=== PATIENT | female | born 1945 | race Caucasian/White ===

== ENCOUNTER → 2018-06-20 | Outpatient (CLI) | payer MEDICARE, OTHER ==
[~2018-06-20] MED LIST: ALPR.5 PO; AMLO5 PO; ASPI325EC PO; ASPI81CH PO; CARV3.125 PO; CELE200 PO; CHOL10002 PO; CLOBETASOL TOP; HEARTBURN RELI150 MG PO; HYDCHL25 PO; HYDR1TAB94 PO; LEVSOD50 PO; LISI5 PO; POTCHL10ER PO; Percocet 5-3251 EACH PO; SPIR25 PO; THYR60 PO; VOLTAREN100 GM TOP; [UNRECOGNIZED DRUG - OTHER] PO
[2018-06-20 12:01] LABS: BASOPHILS ABSOLUTE AUTO 0.17 K/mm3 (0.00-0.23); BASOPHILS PERCENT AUTO 2 % (0-2); EOSINOPHILS ABSOLUTE AUTO 0.52 K/mm3 (0.00-0.68); EOSINOPHILS PERCENT AUTO 6 % (0-6); Hematocrit 44.7 % (33.0-51.0); Hemoglobin 15.6 g/dL (11.5-16.0); IMMATURE GRAN ABSOLUTE AUTO 0.02 K/mm3 (0.00-0.10); IMMATURE GRAN PERCENT AUTO 0 % (0-1); LYMPHOCYTES PERCENT AUTO 38 % (21-46); MONOCYTES ABSOLUTE AUTO 0.85 K/mm3 (0.16-1.47); MONOCYTES PERCENT AUTO 10 % (4-13); Mean Corpuscular HGB 31.5 pg (26.0-34.0); Mean Corpuscular HGB Conc 34.9 g/dL (31.5-36.5); Mean Platelet Volume 10.8 fL (9.1-12.4); NEUTROPHILS ABSOLUTE AUTO 4.02 K/mm3 (1.96-9.15); NEUTROPHILS PERCENT AUTO 45 % (41-73); Platelet Count 432 K/mm3 (150-400); RDW Standard Deviation 46.4 fL (35.1-46.3); Red Blood Cell Count 4.95 M/mm3 (3.80-5.20); White Blood Cell Count 8.98 K/mm3 (4.00-11.30)
[2018-06-20 12:02] LABS: Bun/Creatinine Ratio 31.7 (12.0-20.0); Calcium, Blood 9.4 mg/dL (8.5-10.1); Creatinine, Blood 1.64 mg/dL (0.40-1.00); Mean Corpuscular Volume 90 fL (80-100); Potassium, Blood 4.9 mmol/L (3.5-5.5)
== END | disposition home or self-care (01) ==
LOC: LAB SHORT 11:54 → LAB EV 11:54
PROVIDERS: Family Medicine
DX: R19.7 Diarrhea, unspecified (principal); N39.0 Urinary tract infection, site not specified
CPT/HCPCS: 80048; 85025; 87086

== ENCOUNTER 2018-07-04 07:00 | Day surgery (SDC) | payer MEDICARE, OTHER ==
[~2018-07-04] VITALS: Ht 165.1 cm; Wt 89.4 kg
[~2018-07-04 07:00] MED LIST changes: -ASPI325EC PO; -Percocet 5-3251 EACH PO
--- NOTE | 2018-07-04 08:00 | NUR ---
History, Chart, Medications and Allergies reviewed before start of procedure. Patient confirms NPO status and agrees with scheduled surgery. Patient reports completing Chlorhexadine shower X2 prior to admission to hospital. Lungs clear T/O to Auscultation. Reports having no current issues with c-diff and was treated and has no current diarrhea. Nozin nasal ladle builder used to nares bilat x3 ampules.
--- NOTE | 2018-07-04 08:01 | NUR ---
knee high mervin hose wtih calf PAS intact to RLE.
--- NOTE | 2018-07-04 08:19 | NUR ---
PATIENT DECLINES BLANKET WARMER.
[2018-07-04 10:48] LABS: Albumin, Blood 2.9 g/dL (3.4-5.0); Albumin/Globulin Ratio 0.7 (0.8-1.8); Bilirubin, Total 0.6 mg/dL (0.1-1.0); Calcium, Blood 8.9 mg/dL (8.5-10.1); Creatinine, Blood 1.4 mg/dL (0.40-1.00); Globulin, Blood 4.4 g/dL (2.2-4.0); Potassium, Blood 4.1 mmol/L (3.5-5.5); Total Protein, Blood 7.3 g/dL (6.4-8.2)
--- NOTE | 2018-07-04 11:57 | NUR ---
"[facility] | REPORT TO KRISHNA SANCHES. XRAYS PENDING."
--- NOTE | 2018-07-04 12:13 | NUR ---
WAITING TO GIVE REPORT TO SURGICAL FLOOR RN. PT RESTING QUIETLY.
--- NOTE | 2018-07-04 13:46 | NUR ---
PT ARRIVED BACK TO THE ROOM AT APPROXIMATELY 1225. PT ALERT AND ORIENTED UPON ARRIVAL TO THE ROOM. PT DENIES PAIN BUT REPORTS NUMBNESS TO BLE. WILL CONTINUE TO REPORT TO ONCOMING RN.
--- NOTE | 2018-07-04 18:12 | NUR ---
SHIFT SUMMARY PAIN HAS BEEN MANAGED WITH PO PAIN MEDICATION POST OP. PT WAS UNABLE TO WORK WITH THERAPY R/T NUMBNESS TO BLE. PT HAS BEEN OOB X1 WITH 1 PERSON ASSIST. VSS. WILL MONITOR UNTIL REPORT TO ONCOMING RN.
--- NOTE | 2018-07-05 02:58 | NUR ---
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 PT has increased creatinine 1.40 with gfr 39 so toradol not given. PT says she has seen nephrology in past for condition. she has recieved oxycodone 10 mg x 1 and wanting another dose as soon as possible q 4 hours prn. up with minimal assist to bsc and voids good amounts of urine. denies nausea, declines bowel care due to hx IBS. poor appetite taking fluds with out problems. has bradycardia with pulse from 49 to 58. denies dizziness when up out of bed.
[2018-07-05 05:10] LABS: BASOPHILS ABSOLUTE AUTO 0.11 K/mm3 (0.00-0.23); BASOPHILS PERCENT AUTO 1 % (0-2); EOSINOPHILS ABSOLUTE AUTO 0.92 K/mm3 (0.00-0.68); EOSINOPHILS PERCENT AUTO 9 % (0-6); Hematocrit 39.2 % (33.0-51.0); Hemoglobin 12.8 g/dL (11.5-16.0); IMMATURE GRAN ABSOLUTE AUTO 0.03 K/mm3 (0.00-0.10); IMMATURE GRAN PERCENT AUTO 0 % (0-1); LYMPHOCYTES PERCENT AUTO 26 % (21-46); MONOCYTES ABSOLUTE AUTO 1.03 K/mm3 (0.16-1.47); MONOCYTES PERCENT AUTO 10 % (4-13); Mean Corpuscular HGB Conc 32.7 g/dL (31.5-36.5); Mean Corpuscular Volume 95 fL (80-100); Mean Platelet Volume 11.1 fL (9.1-12.4); NEUTROPHILS ABSOLUTE AUTO 5.79 K/mm3 (1.96-9.15); NEUTROPHILS PERCENT AUTO 55 % (41-73); Platelet Count 336 K/mm3 (150-400); RDW Coefficient Variation 14.3 % (11.7-14.2); Red Blood Cell Count 4.13 M/mm3 (3.80-5.20); White Blood Cell Count 10.58 K/mm3 (4.00-11.30)
[2018-07-05 05:58] LABS: Calcium, Blood 8.2 mg/dL (8.5-10.1); Creatinine, Blood 1.4 mg/dL (0.40-1.00); Magnesium, Blood 1.6 mg/dL (1.6-2.4); Potassium, Blood 4.1 mmol/L (3.5-5.5)
[2018-07-05] MEDS ORDERED: Percocet 5-3251 EACH PO (08:24)
[2018-07-05] MEDS ORDERED: ASPI325EC PO (08:25)
== END 2018-07-05 15:35 | disposition home or self-care (01) ==
LOC: ORSCMMR 07:00 → SURS 13:11 → ORSCMMR 07-05 15:35
PROVIDERS: Anesthesiology; Orthopaedic Surgery
PROC: 0SRD0JZ Replacement of Left Knee Joint with Synthetic Substitute, Open Approach (ICD-10-PCS; principal; 2018-07-04 08:30)
DX: M17.12 Unilateral primary osteoarthritis, left knee (principal); E03.9 Hypothyroidism, unspecified; I10 Essential (primary) hypertension; K21.9 Gastro-esophageal reflux disease without esophagitis; Z79.899 Other long term (current) drug therapy; Z79.82 Long term (current) use of aspirin; Z88.5 Allergy status to narcotic agent; Z88.8 Allergy status to other drugs, medicaments and biological substances; Z95.5 Presence of coronary angioplasty implant and graft; Z90.81 Acquired absence of spleen; Z90.49 Acquired absence of other specified parts of digestive tract; Z90.710 Acquired absence of both cervix and uterus; Z87.891 Personal history of nicotine dependence
CPT/HCPCS: 36415; 73560-LT; 80048; 80053; 83735; 85025; 86850; 86900; 86901; 88300; 97110; 97116; 97161; 97530; C1776; J0171; J0690; J0735; J1885; J2250; J2795; J7120

== ENCOUNTER → 2018-11-29 | Outpatient (CLI) | payer MEDICARE, OTHER ==
[~2018-11-29] MED LIST changes: +ASPI325EC PO; +Percocet 5-3251 EACH PO
== END | disposition home or self-care (01) ==
LOC: LAB SHORT 11:41 → PLD 11:41
DX: L57.0 Actinic keratosis (principal); L81.9 Disorder of pigmentation, unspecified
CPT/HCPCS: 88305

== ENCOUNTER → 2019-10-27 | Outpatient (CLI) | payer MEDICARE, OTHER ==
[~2019-10-27] MED LIST changes: +ACET325 PO; +AZIT250 PO; +Aspirin EC81 MG PO; -CARV3.125 PO; +CARV6.25 PO; +CARVEDILOL6.25 MG PO; +CELEBREX200 MG PO; -CHOL10002 PO; -HEARTBURN RELI150 MG PO; +LEVSOD112 PO; -LEVSOD50 PO; -LISI5 PO; +Prinivil10 MG PO; +RANITIDINE PO; +VITAMIN D31000 UNI1 PO; +ZESTRIL40 M1 PO
[2019-10-27 15:12] LABS: Albumin, Blood 2.3 g/dL (3.4-5.0); Albumin/Globulin Ratio 0.5 (0.8-1.8); Bun/Creatinine Ratio 23.1 (12.0-20.0); Calcium, Blood 7.9 mg/dL (8.5-10.1); Creatinine, Blood 1.3 mg/dL (0.40-1.00); Potassium, Blood 3.2 mmol/L (3.5-5.5); Total Protein, Blood 7.3 g/dL (6.4-8.2); Troponin I 0.026 ng/mL (0.000-0.040)
[2019-10-27 15:14] LABS: Hematocrit 35.7 % (33.0-51.0); Mean Corpuscular HGB 31.3 pg (26.0-34.0); Mean Corpuscular HGB Conc 33.6 g/dL (31.5-36.5); Mean Corpuscular Volume 93 fL (80-100); RDW Coefficient Variation 14.3 % (11.7-14.2); RDW Standard Deviation 47.3 fL (35.1-46.3); Red Blood Cell Count 3.84 M/mm3 (3.80-5.20)
[2019-10-27 15:30] LABS: Mean Platelet Volume 10.3 fL (9.1-12.4); Platelet Count 363 K/mm3 (150-400); White Blood Cell Count 16.97 K/mm3 (4.00-11.30)
[2019-10-27 15:32] LABS: BASOPHILS PERCENT MAN 0 % (0-2); EOSINOPHILS PERCENT MAN 0 % (0-6); LYMPHOCYTES ABSOLUTE MAN 4.24 K/mm3 (0.84-5.20); LYMPHOCYTES PERCENT MAN 25 % (21-46); MONOCYTES ABSOLUTE MAN 1.52 K/mm3 (0.16-1.47); MONOCYTES PERCENT MAN 9 % (4-13); SEG NEUTROPHILS PERCENT MAN 66 % (41-73); TOTAL CELLS COUNTED 100
== END | disposition home or self-care (01) ==
LOC: LAB EV 14:55 → LAB SHORT 14:55
PROVIDERS: Physician Assistant Surgical
DX: R05 Cough (principal)
CPT/HCPCS: 80053; 84484; 85025

== ENCOUNTER 2019-11-02 09:33 | Inpatient (IN) | payer MEDICARE ==
[~2019-11-02] VITALS: Ht 165.1 cm; Wt 82.2 kg
[~2019-11-02 09:33] MED LIST changes: -CARVEDILOL6.25 MG PO
[2019-11-02 11:31] LABS: BASOPHILS ABSOLUTE AUTO 0.07 K/mm3 (0.00-0.23); BASOPHILS PERCENT AUTO 0 % (0-2); EOSINOPHILS ABSOLUTE AUTO 0.23 K/mm3 (0.00-0.68); EOSINOPHILS PERCENT AUTO 1 % (0-6); Hematocrit 38.9 % (33.0-51.0); Hemoglobin 12.7 g/dL (11.5-16.0); IMMATURE GRAN PERCENT AUTO 1 % (0-1); LYMPHOCYTES ABSOLUTE AUTO 2.88 K/mm3 (0.84-5.20); LYMPHOCYTES PERCENT AUTO 18 % (21-46); MONOCYTES ABSOLUTE AUTO 1.75 K/mm3 (0.16-1.47); MONOCYTES PERCENT AUTO 11 % (4-13); Mean Corpuscular HGB 30.4 pg (26.0-34.0); Mean Corpuscular HGB Conc 32.6 g/dL (31.5-36.5); Mean Corpuscular Volume 93 fL (80-100); Mean Platelet Volume 10.8 fL (9.1-12.4); NEUTROPHILS ABSOLUTE AUTO 11.21 K/mm3 (1.96-9.15); NEUTROPHILS PERCENT AUTO 69 % (41-73); Platelet Count 360 K/mm3 (150-400); RDW Coefficient Variation 14.3 % (11.7-14.2); RDW Standard Deviation 48.1 fL (35.1-46.3); Red Blood Cell Count 4.18 M/mm3 (3.80-5.20); White Blood Cell Count 16.34 K/mm3 (4.00-11.30)
[2019-11-02 11:54] LABS: Alanine Aminotransfer (ALT/SGP 16 U/L (12-78); Albumin, Blood 2.2 g/dL (3.4-5.0); Albumin/Globulin Ratio 0.5 (0.8-1.8); Alk Phos 79 U/L (50-136); Anion Gap 11 mmol/L (6-16); Aspartate Aminotrans (AST/SGOT 28 U/L (12-37); Bilirubin, Total 0.8 mg/dL (0.1-1.0); Blood Urea Nitrogen 16 mg/dL (8-24); CO2, Blood 23 mmol/L (21-32); Calcium, Blood 7.8 mg/dL (8.5-10.1); Chloride, Blood 101 mmol/L (98-108); Creatinine, Blood 0.89 mg/dL (0.40-1.00); Globulin, Blood 4.5 g/dL (2.2-4.0); Glomerular Filtration Rate >60 (60-); Glucose, Blood 92 mg/dL (70-99); Potassium, Blood 2.6 mmol/L (3.5-5.5); Sodium, Blood 135 mmol/L (136-145); Total Protein, Blood 6.7 g/dL (6.4-8.2)
[2019-11-02 11:58] LABS: Troponin I <0.015 ng/mL (0.000-0.040)
[2019-11-02 12:56] LABS: International Normalized Ratio 1.14; Prothrombin Time Results 12.1 Sec (9.7-11.5)
[2019-11-02] MEDS ORDERED: CARVEDILOL6.25 MG PO (13:18)
[2019-11-02] MEDS ORDERED: AMLO5 PO (15:27)
--- NOTE | 2019-11-02 17:31 | NUR ---
CARDIZEM DECREASED TO 5ML/HR PER TITRATION ORDERS, PT NOTED TO BE IN SINUS RYTHM. SPOKE TO PROVIDER, EKG REPEATED, CONTINUE TO DECREASE CARDIZEM TO ZERO PER DR RODRIGUEZ.
--- NOTE | 2019-11-02 18:18 | NUR ---
MAG HELD PER RECENT LABS PER DR. RODRIGUEZ.
[2019-11-03 04:12] LABS: BASOPHILS ABSOLUTE AUTO 0.09 K/mm3 (0.00-0.23); BASOPHILS PERCENT AUTO 1 % (0-2); EOSINOPHILS ABSOLUTE AUTO 0.27 K/mm3 (0.00-0.68); EOSINOPHILS PERCENT AUTO 2 % (0-6); Hematocrit 36.5 % (33.0-51.0); Hemoglobin 11.8 g/dL (11.5-16.0); IMMATURE GRAN ABSOLUTE AUTO 0.14 K/mm3 (0.00-0.10); IMMATURE GRAN PERCENT AUTO 1 % (0-1); LYMPHOCYTES ABSOLUTE AUTO 2.82 K/mm3 (0.84-5.20); LYMPHOCYTES PERCENT AUTO 18 % (21-46); MONOCYTES ABSOLUTE AUTO 1.42 K/mm3 (0.16-1.47); MONOCYTES PERCENT AUTO 9 % (4-13); Mean Corpuscular HGB 30.6 pg (26.0-34.0); Mean Corpuscular HGB Conc 32.3 g/dL (31.5-36.5); Mean Corpuscular Volume 95 fL (80-100); NEUTROPHILS ABSOLUTE AUTO 11.08 K/mm3 (1.96-9.15); NEUTROPHILS PERCENT AUTO 70 % (41-73); Platelet Count 376 K/mm3 (150-400); RDW Coefficient Variation 14.5 % (11.7-14.2); RDW Standard Deviation 48.5 fL (35.1-46.3); Red Blood Cell Count 3.86 M/mm3 (3.80-5.20); White Blood Cell Count 15.82 K/mm3 (4.00-11.30)
[2019-11-03 04:38] LABS: Anion Gap 10 mmol/L (6-16); Blood Urea Nitrogen 15 mg/dL (8-24); Bun/Creatinine Ratio 15.3 (12.0-20.0); CO2, Blood 22 mmol/L (21-32); Calcium, Blood 7.4 mg/dL (8.5-10.1); Chloride, Blood 109 mmol/L (98-108); Creatinine, Blood 0.98 mg/dL (0.40-1.00); Glomerular Filtration Rate 59 (60-); Glucose, Blood 87 mg/dL (70-99); Magnesium, Blood 1.8 mg/dL (1.6-2.4); Phosphorus, Blood 1.4 mg/dL (2.5-4.9); Potassium, Blood 4.2 mmol/L (3.5-5.5); Sodium, Blood 141 mmol/L (136-145); Troponin I 0.031 ng/mL (0.000-0.040)
--- NOTE | 2019-11-03 05:29 | NUR ---
SHIFT SUMMARY PT A&O X4. VSS. MONITOR SHOWS NSR T/O SHIFT, HR 60's-80's. SPO2 > 92% ON RA. NO EVENTS OVER NIGHT. NS KCL GTT INFUSING PER ORDERS. WILL CONTINUE TO MONITOR AND PROVIDE CARE PER ORDERS AND PROTOCOL.
--- NOTE | 2019-11-03 08:11 | NUR ---
ASSUMED CARE AT 0700, RESTING SUPINE AT 30 DEGREE INCLINE. A/A/OX4, VSS, KCL INFUSING AT 125ML/HR AT THIS TIME, PLAN OF CARE REVIEWED, WILL CONTINUE TO MONITOR.
[2019-11-04 04:37] LABS: BASOPHILS ABSOLUTE AUTO 0.15 K/mm3 (0.00-0.23); BASOPHILS PERCENT AUTO 1 % (0-2); EOSINOPHILS ABSOLUTE AUTO 0.45 K/mm3 (0.00-0.68); EOSINOPHILS PERCENT AUTO 3 % (0-6); Hematocrit 35.7 % (33.0-51.0); Hemoglobin 11.3 g/dL (11.5-16.0); IMMATURE GRAN ABSOLUTE AUTO 0.15 K/mm3 (0.00-0.10); IMMATURE GRAN PERCENT AUTO 1 % (0-1); LYMPHOCYTES ABSOLUTE AUTO 2.97 K/mm3 (0.84-5.20); LYMPHOCYTES PERCENT AUTO 21 % (21-46); MONOCYTES ABSOLUTE AUTO 1.15 K/mm3 (0.16-1.47); MONOCYTES PERCENT AUTO 8 % (4-13); Mean Corpuscular HGB 30.2 pg (26.0-34.0); Mean Corpuscular HGB Conc 31.7 g/dL (31.5-36.5); Mean Corpuscular Volume 96 fL (80-100); Mean Platelet Volume 10.9 fL (9.1-12.4); NEUTROPHILS ABSOLUTE AUTO 9.27 K/mm3 (1.96-9.15); NEUTROPHILS PERCENT AUTO 66 % (41-73); Platelet Count 400 K/mm3 (150-400); RDW Standard Deviation 51.1 fL (35.1-46.3); Red Blood Cell Count 3.74 M/mm3 (3.80-5.20); White Blood Cell Count 14.14 K/mm3 (4.00-11.30)
[2019-11-04 04:58] LABS: Anion Gap 7 mmol/L (6-16); Blood Urea Nitrogen 11 mg/dL (8-24); Bun/Creatinine Ratio 12.3 (12.0-20.0); CO2, Blood 22 mmol/L (21-32); Calcium, Blood 7.8 mg/dL (8.5-10.1); Chloride, Blood 110 mmol/L (98-108); Creatinine, Blood 0.89 mg/dL (0.40-1.00); Glomerular Filtration Rate >60 (60-); Glucose, Blood 88 mg/dL (70-99); Phosphorus, Blood 1.3 mg/dL (2.5-4.9); Sodium, Blood 139 mmol/L (136-145)
--- NOTE | 2019-11-04 05:48 | NUR ---
SHIFT SUMMARY PT A&O X4. VSS. MONITOR SHOWS SR, HR 60's-70's. SPO2 > 92% ON RA. PT SBA TO BEDSIDE COMMODE & ABLE TO REPOSITION SELF IN BED INDEPENDENTLY. PT ENCOURAGED TO REPOSITION SELF FREQUENTLY D/T REDNESS ON COCCYX. PT HOWEVER CHOOSES TO REMAIN FLAT, REQUIRING PROMPTING TO REPOSITION. BRUISES SCATTERED T/O. PT REPORT OF PSORIASIS T/O BACK. NO EVENTS OVER NIGHT. WILL CONTINUE TO MONITOR AND PROVIDE CARE UNTIL REPORT OFF TO DAY SHIFT RN.
--- NOTE | 2019-11-04 07:29 | NUR ---
ASSUMED CARE AT 0700, REPORT FROM VERÓNICA VILLEGAS. SLEEPING SUPINE IN BED IN LOW FOWLERS, 02 2L VIA OR. VSS. PLAN OF CARE REVIEWED, WILL CONTINUE TO MONITOR.
--- NOTE | 2019-11-04 09:52 | NUR ---
ASSISTED TO BEDSIDE COMMODE, COCCYX NOTED TO BE RED AND SCABS TO BUTTOX. PT STATES HAS PSORIASIS AND THIS IS NORMAL. OFFERED MEPILEX DRESSING, PT DECLINED, BARRIER CREAM PLACED TO RED AREAS.
--- NOTE | 2019-11-04 17:22 | NUR ---
SHIFT SUMMARY PATIENT WAS A PCU TRANSFER THIS AM. SHE IS HERE FOR PULMONARY EMBOLI. SHE IS ALERT AND ORIENTED WELL INDEPENDENT IN THE ROOM. CALLS APPROPRIATELY. SHE CURRENTLY HAS ONE IV FOR IV ANTIBIOTICS WELL TELEMETRY. SHE IS RUNNING SINUS RHYTHM ON TELEMETRY. SHE IS SCHEDULED FOR OUTPATIENT PET SCAN TOMORROW 11/05/19. THIS IS IF SHE CAN LEAVE CAMPUS AND COME BACK, THIS NEEDS TO BE SET UP BY [facility] PRIOR TO HER GOING ANYWHERE. SHE IS STILL STRUGGLING WITH A COUGH, SHE WAS TOLD SHE HAD A PNA AND HAD BEEN TREATED MULTIPLE TIMES OUTPATIENT FOR HER CURRENT LUNG PROBLEMS. PATIENT IS ALSO SET TO HAVE A PET SCAN DUE TO HER PAST HISTORY OF CANCER.
[2019-11-05 05:59] LABS: BASOPHILS ABSOLUTE AUTO 0.19 K/mm3 (0.00-0.23); BASOPHILS PERCENT AUTO 1 % (0-2); EOSINOPHILS ABSOLUTE AUTO 0.64 K/mm3 (0.00-0.68); EOSINOPHILS PERCENT AUTO 5 % (0-6); Hematocrit 36.6 % (33.0-51.0); Hemoglobin 11.6 g/dL (11.5-16.0); IMMATURE GRAN ABSOLUTE AUTO 0.14 K/mm3 (0.00-0.10); IMMATURE GRAN PERCENT AUTO 1 % (0-1); LYMPHOCYTES ABSOLUTE AUTO 3.34 K/mm3 (0.84-5.20); LYMPHOCYTES PERCENT AUTO 23 % (21-46); MONOCYTES ABSOLUTE AUTO 1.39 K/mm3 (0.16-1.47); MONOCYTES PERCENT AUTO 10 % (4-13); Mean Corpuscular HGB 30.3 pg (26.0-34.0); Mean Corpuscular HGB Conc 31.7 g/dL (31.5-36.5); Mean Corpuscular Volume 96 fL (80-100); Mean Platelet Volume 10.4 fL (9.1-12.4); NEUTROPHILS ABSOLUTE AUTO 8.66 K/mm3 (1.96-9.15); NEUTROPHILS PERCENT AUTO 60 % (41-73); Platelet Count 436 K/mm3 (150-400); RDW Coefficient Variation 14.9 % (11.7-14.2); Red Blood Cell Count 3.83 M/mm3 (3.80-5.20); White Blood Cell Count 14.36 K/mm3 (4.00-11.30)
[2019-11-05 06:00] LABS: International Normalized Ratio 1.21; Prothrombin Time Results 12.8 Sec (9.7-11.5)
[2019-11-05 06:15] LABS: Albumin, Blood 2.1 g/dL (3.4-5.0); Anion Gap 8 mmol/L (6-16); Blood Urea Nitrogen 10 mg/dL (8-24); CO2, Blood 23 mmol/L (21-32); Calcium, Blood 8.4 mg/dL (8.5-10.1); Chloride, Blood 102 mmol/L (98-108); Glomerular Filtration Rate 58 (60-); Glucose, Blood 77 mg/dL (70-99); Magnesium, Blood 1.6 mg/dL (1.6-2.4); Potassium, Blood 3.8 mmol/L (3.5-5.5); Sodium, Blood 133 mmol/L (136-145)
--- NOTE | 2019-11-05 06:23 | NUR ---
SHIFT SUMMARY PT IS A 74 Y/O FEMALE, ADMITTED FOR BLL PE. SHE IS A&O X 4, INDEPENDENT IN THE ROOM. NO COMPLAINTS OF PAIN, ACUTE SOB, OR NAUSEA. TELE SHOWED NSR IN THE 70S. VITAL SIGNS STABLE. PER REPORT PT AWAITING PET SCAN TODAY. NO ACUTE CHANGES IN PT CONDITION NOTED. WILL CONTINUE TO MONITOR AND TREAT PER EMAR UNTIL HAND OFF TO DAY SHIFT RN.
[2019-11-05] MEDS ORDERED: ACET325 PO (17:27)
[2019-11-05] MEDS ORDERED: FAMO20 PO (17:27)
[2019-11-05] MEDS ORDERED: XARELTO15 MG PO (17:28)
--- NOTE | 2019-11-05 18:19 | NUR ---
DISCHARGE DISCHARGE INSTRUCTIONS, MEDICATION LIST AND FOLLOW UP APPOINTMENTS REVIEWED WITH PT. QUESTIONS/CONCERNS ANSWERED. OUT PATIENT PET SCAN TO BE ORDERED/ARRANGED BY [facility]. PT ESCORTED OUT BY DIRECTOR OF CORPORATE SPONSORSHIPS VIA W/C
== END 2019-11-05 18:10 | disposition home or self-care (01) | DRG 175 ==
LOC: ER 09:33 → PCU 14:12 → MEDS 14:12 → PCU 15:10 → MEDS 11-04 10:45
PROVIDERS: Emergency Medicine; ADMIT Internal Medicine Gastroenterology
DX: I26.99 Other pulmonary embolism without acute cor pulmonale (principal); J18.9 Pneumonia, unspecified organism; I25.2 Old myocardial infarction; I25.10 Atherosclerotic heart disease of native coronary artery without angina pectoris; L40.50 Arthropathic psoriasis, unspecified; Z90.81 Acquired absence of spleen; Z85.850 Personal history of malignant neoplasm of thyroid; Z96.642 Presence of left artificial hip joint; Z96.652 Presence of left artificial knee joint; Z95.5 Presence of coronary angioplasty implant and graft; Z79.82 Long term (current) use of aspirin; E89.0 Postprocedural hypothyroidism; Z88.8 Allergy status to other drugs, medicaments and biological substances; K21.9 Gastro-esophageal reflux disease without esophagitis; E87.6 Hypokalemia; E83.42 Hypomagnesemia; E83.39 Other disorders of phosphorus metabolism; I48.0 Paroxysmal atrial fibrillation; R59.0 Localized enlarged lymph nodes; Z87.891 Personal history of nicotine dependence
CPT/HCPCS: 36415; 71260; 80053; 80069; 83605; 83735; 83880; 84145; 84484; 85025; 85610; 85730; 93005; 93010; 96361-59; 96372-59; 96374-59; 99285-25; A9270; A9270-GY; J0713; J1650; J1940; J2543; J3475; J3480; J7030; J7050; Q9967